=== PATIENT | male | born 1985 | race Caucasian/White ===

== ENCOUNTER 2017-12-11 20:06 | Emergency (ER) | payer MEDICAID, OTHER ==
--- NOTE | 2017-12-11 20:27 | Emergency Department Record ---
History of Present Illness - General Chief Complaint: Laceration(s) Stated Complaint: RT HAND PALM LACERATION Time Seen by Provider: 12/11/17 20:25 Source: Patient Mode of Arrival: Ambulatory Limitations: No limitations - History of Present Illness Initial Commments: 31 yo male presents to ED for evaluation of a laceration to the palm of the right hand. Patient reports that he was cutting a tennis ball with his hunting knife when he accidentally caused a laceration to the hand. Patient denies numbness, tingling, or finger weakness on examination. Patient denies other injury, reports that his tetanus is UTD as well. Onset/Timin -: Minutes(s) Extremity Location: Right: Hand Place: Home Context: Accidental Associated Symptoms: None Treatments Prior to Arrival: Bandage - Guille Coma Scale Eye Response: (4) Open spontaneously Motor Response: (6) Obeys commands Verbal Response: (5) Oriented Guille Total: 15 - Related Data Hx Tetanus Toxoid Vaccination: Yes Patient Tetanus UTD (within 5 yrs): Yes Home Medications Medication Instructions Recorded Confirmed Last Taken No Home Med [NO HOME MEDS] 12/11/17 12/11/17 Unknown Allergies Allergy/AdvReac Type Severity Reaction Status Date / Time Penicillins Allergy HIVES Verified 12/11/17 20:27 sulfamethoxazole Allergy HIVES Verified 12/11/17 20:27 [From Bactrim] trimethoprim [From Bactrim] Allergy HIVES Verified 12/11/17 20:27 Review of Systems Constitutional: Denies: Chills, Fever, Malaise, Night sweats Eyes: Denies: Eye discharge, Eye pain ENT: Denies: Congestion, Ear pain, Epistaxis Respiratory: Denies: Cough, Dyspnea Cardiovascular: Denies: Chest pain, Dyspnea on exertion Endocrine: Denies: Fatigue, Heat or cold intolerance Gastrointestinal: Denies: Abdominal pain, Nausea, Vomiting Genitourinary: Denies: Incontinence, Retention Musculoskeletal: Denies: Arthralgia, Back pain, Gout, Joint swelling Skin: Reports: Other (Hand laceration). Denies: Bruising, Change in color Neurological: Denies: Abnormal gait, Confusion, Headache, Seizure Psychiatric: Denies: Anxiety Hematological/Lymphatic: Denies: Anemia, Blood Clots Physical Exam - General General Appearance: Alert, Oriented x3, Cooperative, Moderate distress Limitations: No limitations - Head Head exam: Atraumatic, Normocephalic, Normal inspection Head exam detail: negative: Abrasion, Contusion, Huang's sign, General tenderness, Hematoma, Laceration - Eye Eye exam: Normal appearance. negative: Conjunctival injection, Periorbital swelling, Periorbital tenderness, Scleral icterus - ENT Ear exam: negative: Auricular hematoma, Auricular trauma Nasal Exam: negative: Active bleeding, Discharge, Dried blood, Foreign body Mouth exam: negative: Drooling, Laceration, Muffled voice, Tongue elevation - Neck Neck exam: Normal inspection. negative: Meningismus, Tenderness - Respiratory Respiratory exam: Normal lung sounds bilaterally. negative: Rales, Respiratory distress, Rhonchi, Stridor - Cardiovascular Cardiovascular Exam: Regular rate, Normal rhythm, Normal heart sounds Peripheral Pulses: 3+: Radial (R) - GI/Abdominal GI/Abdominal exam: Soft. negative: Rebound, Rigid, Tenderness - Rectal Rectal exam: Deferred - exam: Deferred - Extremities Extremities exam: Tenderness, Other (5.5 cm linear laceration to the base of the right hand, bleeding controlled.). negative: Calf tenderness, Pedal edema - Back Back exam: Denies: CVA tenderness (R), CVA tenderness (L) - Neurological Neurological exam: Alert, Normal gait, Oriented X3 - Psychiatric Psychiatric exam: Normal affect, Normal mood - Skin Skin exam: Normal color. negative: Abrasion Type of lesion: negative: abrasion Course Vital Signs 12/11/17 20:14 Temperature 98.5 F Pulse Rate [ 88 Pulse Ox Probe] Respiratory 20 Rate Blood Pressure 140/105 [Left Arm] Pulse Ox 98 - Reevaluation(s) Reevaluation #1: 12/11/17 20:44 5.5 cm laceration over the palm of the right hand, bleeding controlled. Wound was cleaned and prepped in sterile fashion, no residual FB identified on examination. No tendon laceration is visualized on examination. Wound was anesthetized with 2.5 mL of 1% Lidocaine with epinephrine with good anesthesia, and the laceration was repaired with (#9) 4-0 Prolene sutures in interrupted fashion. Patient tolerated the procedure well without complications. Wound is the result of a clean knife, and antibiotics are not felt to be indicated based on history and examination. Patient was counseled to return to ED for any redness, swelling, increase in pain, or drainage from the wound site. Patient verbalizes understanding of all instructions and appears stable for discharge at this time. Disposition Disposition: Discharge Clinical Impression: Hand laceration Qualifiers: Encounter type: initial encounter Foreign body presence: without foreign body Laterality: right Qualified Code(s): S61.411A - Laceration without foreign body of right hand, initial encounter Disposition: Home, Self-Care Condition: (2) Stable Instructions: Laceration (ED) Additional Instructions: Return to ED if your symptoms worsen or if you have any concerns. Follow-up with your family doctor in 3-5 days as directed. Sutures out in 10-14 days as directed. Forms: Patient Portal Access Time of Disposition: 20:32 Quality - Quality Measures Quality Measures: N/A - Blood Pressure Screening Does Patient Have Any of the Following: No Blood Pressure Classification: Hypertensive Reading Systolic Measurement: 140 Diastolic Measurement: 105 Screening for High Blood Pressure: < First Hypertensive BP, F/U Documented > [ [id number]] First Hypertensive Follow-up Interventions: Referral to alternative/primary care provider.
== END 2017-12-11 20:56 | disposition home or self-care (01) ==
LOC: ER 20:06
DX: S61.411A Laceration without foreign body of right hand, initial encounter (principal); W26.0XXA Contact with knife, initial encounter; F17.210 Nicotine dependence, cigarettes, uncomplicated; F17.220 Nicotine dependence, chewing tobacco, uncomplicated
CPT/HCPCS: 12002; 99283